=== PATIENT | male | born 1980 | race Caucasian/White ===

== ENCOUNTER 2018-01-19 01:04 | Emergency (ER) | payer SELFPAY ==
[~2018-01-19] VITALS: Ht 185.4 cm; Wt 79.4 kg
[2018-01-19] MEDS ORDERED: MUPIROCIN22 GM TOPIC (01:12)
--- NOTE | 2018-01-19 01:12 | Emergency Room Report ---
History of Present Illness General Chief Complaint: To Be Triaged Source: Patient Present Illness HPI Is a 37-year-old male with a history of methamphetamine abuse. He was brought in by police for medical clearance. He has ulcer on his lower extremity. He said he's been picking at it and noticed some irritation. He said there are bugs crawling any to skin. No fever chills but no nausea no vomiting. No suicidal thoughts or homicidal thought. Allergies: Coded Allergies: RISPERIDONE (Verified Allergy, Unknown, 01/19/18) Patient History Past Medical History: see triage record, old chart reviewed, psych hx Past Surgical History: other Pertinent Family History: none Social History: Reports: smoking, drug use Immunizations: other Reviewed Nursing Documentation: PMH: Agreed; PSxH: Agreed Review of Systems Eye: Denies: eye pain, blurred vision ENT: Denies: ear pain, nose congestion, throat swelling Respiratory: Denies: cough, shortness of breath Cardiovascular: Denies: chest pain, palpitations Gastrointestinal: Denies: abdominal pain, diarrhea, nausea, vomiting Musculoskeletal: Denies: back pain, joint pain Skin: Reports: rash Neurological: Denies: headache, numbness Endocrine: Denies: increased thirst, increased urine Hematologic/Lymphatic: Denies: easy bruising All Other Systems: negative except mentioned in HPI Physical Exam vitals unremarkable Sp02 EP Interpretation: reviewed, normal General Appearance: well appearing, no apparent distress, alert Head: normocephalic, atraumatic Eyes: bilateral eye PERRL, bilateral eye EOMI ENT: hearing grossly normal, normal pharynx Neck: full range of motion, supple, no meningismus Respiratory: chest non-tender, lungs clear, normal breath sounds Cardiovascular #1: regular rate, rhythm, no murmur Gastrointestinal: normal bowel sounds, non tender, no mass, no organomegaly, no bruit, non-distended Musculoskeletal: back normal, gait/station normal, normal range of motion Psychiatric: mood/affect normal Skin: warm/dry, other - ulcerations to right lower leg from skin picking. one is mild erythematous with slight oozing. Medical Decision Making Diagnostic Impression: Primary Impression: Methamphetamine abuse Additional Impressions: Delusions of parasitosis Examination, medicolegal reason Skin ulcer Qualified Codes: L98.491 - Non-pressure chronic ulcer of skin of other sites limited to breakdown of skin ER Course Patient with ulceration of his leg from skin picking secondary to methamphetamine abuse. Maybe early local cellulitis. We'll treat symptomatically. We'll discharge home. Status: unchanged Disposition: HOME, SELF-CARE Condition: Stable Scripts Mupirocin* (MUPIROCIN*) 22 Gm Oint...g. 1 APPLIC TOPIC THREE TIMES A DAY, #22 GM Prov: ZION GOMEZ M.D. 01/19/18 Additional Instructions: Stop using drugs. Follow-up your doctor in 7 days for recheck. Return if worse. ZION GOMEZ M.D. Jan 19, 2018 01:12
[2018-01-19 01:15] VITALS: BP 112/73
[2018-01-19] MEDS ORDERED: Bacitracin Oint UD TOPIC ONE (01:15)
[2018-01-19 01:47] VITALS: BP 112/73
== END 2018-01-19 01:47 | disposition home or self-care (01) ==
LOC: EMR 01:30
DX: F15.10 Other stimulant abuse, uncomplicated (principal); F22 Delusional disorders; L97.819 Non-pressure chronic ulcer of other part of right lower leg with unspecified severity; Z02.89 Encounter for other administrative examinations
CPT/HCPCS: 99283